=== PATIENT | male | born 1950 | race Caucasian/White ===

== ENCOUNTER 2021-10-07 10:14 | Inpatient (IN) | payer OTHER, MEDICARE ==
[~2021-10-07] VITALS: Ht 188 cm; Wt 101.6 kg
--- NOTE | 2021-10-07 10:22 | NUR ---
TO ER BED 11. BIBRA 860 [facility] C/O R KNEE PAIN S/P GLF LAST NIGHT DENIES HEAD INJURY. 100MCG FENTANYL IM GIVEN BY EMS TIMBER DEADENER.
--- NOTE | 2021-10-07 10:41 | NUR ---
iv established l hand 20g. converted to saline lock.
[2021-10-07] MEDS ORDERED: METO25TA20 PO (10:45)
[2021-10-07] MEDS ORDERED: METF-442 PO (10:45)
[2021-10-07] MEDS ORDERED: ALBU18HF2 IH (10:45)
[2021-10-07] MEDS ORDERED: INSU100V7 SQ (10:45)
[2021-10-07] MEDS ORDERED: ATOR40TA PO (10:45)
[2021-10-07] MEDS ORDERED: INSU100V9 SQ (10:45)
[2021-10-07] MEDS ORDERED: BUSP30TA2 PO (10:45)
--- NOTE | 2021-10-07 11:01 | NUR ---
x ray at bedside
[2021-10-07 11:05] LABS: BASOPHILS % (AUTO) 0.2 % (0.0-2.0); EOSINOPHILS % (AUTO) 0.5 % (0.0-6.0); HEMATOCRIT 33 % (39-51); LYMPHOCYTES # (AUTO) 0.5 K/uL (0.8-4.8); LYMPHOCYTES % (AUTO) 4.1 % (20.0-44.0); MEAN CORPUSCULAR HGB CONC 30 g/dl (31.0-36.0); MEAN CORPUSCULAR VOLUME 79 fL (80-96); MONOCYTES # (AUTO) 1.4 K/uL (0.1-1.30); MONOCYTES % (AUTO) 12.2 % (2.0-12.0); NEUTROPHILS # (AUTO) 9.5 K/uL (1.8-8.9); PLATELET COUNT (AUTO) 322 K/uL (150-450); RED BLOOD CELL COUNT(AUTO) 4.19 MIL/uL (4.5-6.0); WHITE BLOOD COUNT (AUTO) 11.4 K/uL (4.3-11.0)
[2021-10-07 11:40] LABS: ALANINE AMINOTRANSFERASE 135 U/L (12-78); ALBUMIN 2.9 g/dL (3.4-5.0); ALKALINE PHOSPHATASE 145 U/L (46-116); ASPARTATE AMINOTRANSFERASE 244 U/L (15-37); BILIRUBIN,TOTAL 0.5 mg/dL (0.2-1.0); CALCIUM, SERUM 8.3 mg/dL (8.5-10.1); CARBON DIOXIDE 27 mmol/L (21-32); CHLORIDE 95 mmol/L (98-107); CREATININE 1.3 mg/dL (0.6-1.3); GLUCOSE 145 mg/dL (74-106); POTASSIUM 4.1 mmol/L (3.5-5.1); SODIUM SERUM 128 mmol/L (136-145); TOTAL PROTEIN, SERUM 7.7 g/dL (6.4-8.2); UREA NITROGEN, BLOOD 15 mg/dL (7-18)
--- NOTE | 2021-10-07 12:09 | NUR ---
MOVE SHEET SUBMITTED AND CALLED FOR MS BED.
[2021-10-07] MEDS: MORPHINE SULFATE INJ 4 MG/ML DISP.SYRIN IM PRN ×2 (12:21→12:59)
--- NOTE | 2021-10-07 12:25 | NUR ---
HUSSEIN TRAFFIC OPERATOR WILL GIVE OBS AUTHORIZATION. TRANSFERED SHILPA AT INTAKE.
[2021-10-07] MEDS ORDERED: MORPHINE SULFATE INJ 4 MG/ML DISP.SYRIN ONE ×2 (12:42→13:12)
[2021-10-07] MEDS ORDERED: ONDANSETRON HCL/PF 4 MG/2 ML VIAL ONE (12:42)
[2021-10-07] MEDS ORDERED: ONDANSETRON HCL/PF 4 MG/2 ML VIAL IV PRN (13:00)
[2021-10-07] MEDS ORDERED: MORPHINE SULFATE INJ 4 MG/ML DISP.SYRIN IV PRN ×2 (13:00→13:30)
--- NOTE | 2021-10-07 13:05 | NUR ---
REPORT GIVEN TO ERIK FOR BREANNA.
--- NOTE | 2021-10-07 13:15 | NUR ---
VERBAL ORDER FROM DR MATOS TO GIVE AN ADDITIONAL 4MG OF MORPHINE IV
--- NOTE | 2021-10-07 13:26 | NUR ---
PT TRANSPORT TO [facility] AMNA STABLE CONDITION WITH ACLS PROTOCOLS IN PLACE.
[2021-10-07] MEDS ORDERED: FUROSEMIDE 40 MG/4 ML VIAL IV SCH (13:30)
[2021-10-07] MEDS ORDERED: ONDANSETRON HCL/PF 4 MG/2 ML VIAL IVP PRN (13:30)
[2021-10-07] MEDS ORDERED: ACETAMINOPHEN 325 MG TABLET PO PRN (13:30)
[2021-10-07] MEDS ORDERED: LABETALOL 20 MG/4 ML VIAL IV PRN (13:30)
[2021-10-07] MEDS ORDERED: MORPHINE SULFATE INJ 2 MG/ML DISP.SYRIN IV PRN (13:30)
[2021-10-07 16:00] VITALS: BP 142/82
[2021-10-07] MEDS: ENOXAPARIN SODIUM 40 MG/0.4 ML DISP.SYRIN SQ SCH (16:15)
[2021-10-07] MEDS ORDERED: DEXTROSE 50%-WATER 50 ML DISP.SYRIN IV PRN (18:00)
[2021-10-07] MEDS ORDERED: ALBUTEROL FS 2.5 MG/3 ML VIAL.NEB NEB PRN (18:00)
[2021-10-07] MEDS ORDERED: ATORVASTATIN 40 MG TABLET PO SCH (18:00)
[2021-10-07 18:36] LABS: IRON, SERUM 10 ug/dl (50-175); TOTAL IRON BINDING CAPACITY 316 ug/dl (250-450)
[2021-10-07 18:50] LABS: FERRITIN 57 ng/mL (8-388)
[2021-10-07] MEDS: BLOOD SUGAR DIAGNOSTIC 1 EACH STRIP VI SCH ×2 (18:52→22:08)
[2021-10-07] MEDS: MORPHINE SULFATE INJ 4 MG/ML DISP.SYRIN IV PRN (19:57)
[2021-10-07 20:00] VITALS: BP 140/74
--- NOTE | 2021-10-07 20:08 | NUR ---
RN NOTE PT NEW ADMIT FROM ER. S/P FALL. PT NOTED WITH R LEG IMMOBILIZER. PT IN PAIN 03/06, MEDICATED WITH POSITIVE EFFECT. PT HAS MANJEET MIDLINE G18 AND L HAND G 20. NO IVF. NEEDS ATTENDED. DUE MEDS GIVEN. WILL CONTINUE TO MONITOR.
--- NOTE | 2021-10-07 20:21 | NUR ---
RN NOTE PATIENT ALERT AND ORIENTED X4, ABLE TO MAKE NEEDS KNOWN. ON O2 2L VIA NASAL CANNULA, O2 SAT 98%. WITH RIGHT KNEE IMMOBILIZER. PATIENT COMPLAINED OF SEVERE 8/10 RIGHT HIP PAIN AND REQUESTING FOR PAIN MED, PRN MEDICATION GIVEN AND WITH POSITIVE EFFECT. IV ACCESS ON MELLISSA MIDLINE AND LEFT HAND #20 PATENT AND INTACT. BED LOCKED AND IN LOWEST POSITION. CALL LIGHT WITHIN REACH. ALL NEEDS ANTICIPATED.
[2021-10-07] MEDS: *INSULIN REGULAR(HUMULIN R)HUM 100 UNIT/ML VIAL SQ PRN (22:11)
[2021-10-08] MEDS: MORPHINE SULFATE INJ 4 MG/ML DISP.SYRIN IV PRN ×6 (00:05→21:37)
[2021-10-08 04:00] VITALS: BP 135/71
[2021-10-08 06:29] LABS: BASOPHILS % (AUTO) 0.1 % (0.0-2.0); HEMATOCRIT 29 % (39-51); HEMOGLOBIN 8.9 g/dL (13.5-17.5); LYMPHOCYTES # (AUTO) 0.6 K/uL (0.8-4.8); LYMPHOCYTES % (AUTO) 4.4 % (20.0-44.0); MEAN CORPUSCULAR HGB CONC 31 g/dl (31.0-36.0); MEAN CORPUSCULAR VOLUME 78 fL (80-96); MONOCYTES # (AUTO) 1.7 K/uL (0.1-1.30); NEUTROPHILS # (AUTO) 11.7 K/uL (1.8-8.9); NEUTROPHILS % (AUTO) 83.5 % (43.0-81.0); PLATELET COUNT (AUTO) 270 K/uL (150-450); RED BLOOD CELL COUNT(AUTO) 3.73 MIL/uL (4.5-6.0)
--- NOTE | 2021-10-08 06:40 | NUR ---
RN NOTE PATIENT RESTING IN BED. ON O2 2L VIA NASAL CANNULA, O2 SAT WNL. WITH RIGHT KNEE IMMOBILIZER. PRN PAIN MEDICATION GIVEN THROUGH OUT THE SHIFT. ICE PACKS GIVEN WELL. IV ACCESS ON MELLISSA MIDLINE AND LEFT HAND #20 PATENT AND INTACT. BED LOCKED AND IN LOWEST POSITION. CALL LIGHT WITHIN REACH. WILL ENDORSE TO AM SHIFT.
--- NOTE | 2021-10-08 07:30 | NUR ---
RN OPENING NOTES RECEIVED PATIENT AWAKE, ALERT AND ORIENTED X4, ABLE TO MAKE NEEDS KNOWN. ON O2 2L VIA NASAL CANNULA, O2 SAT 98%. WITH RIGHT KNEE IMMOBILIZER. IV ACCESS ON MELLISSA MIDLINE AND LEFT HAND #20 PATENT AND INTACT, FLUSHED WELL. ALL SAFETY MEASURES IN PLACE. BED LOCKED AND IN LOWEST POSITION. CALL LIGHT WITHIN REACH. WILL CONTINUE TO MONITOR PATIENT ACCORDINGLY.
[2021-10-08 07:51] LABS: ALBUMIN 2.3 g/dL (3.4-5.0); BILIRUBIN,TOTAL 0.9 mg/dL (0.2-1.0); CALCIUM, SERUM 7.7 mg/dL (8.5-10.1); CREATININE 1.2 mg/dL (0.6-1.3); POTASSIUM 3.4 mmol/L (3.5-5.1); TOTAL PROTEIN, SERUM 6.7 g/dL (6.4-8.2)
[2021-10-08] MEDS: BLOOD SUGAR DIAGNOSTIC 1 EACH STRIP VI SCH ×4 (08:15→21:35)
[2021-10-08] MEDS: METOPROLOL TARTRATE 25 MG TABLET PO SCH ×2 (08:45→17:04)
[2021-10-08] MEDS: busPIRone 5 MG TABLET PO SCH ×2 (08:45→17:05)
[2021-10-08] MEDS ORDERED: FUROSEMIDE 20 MG/2 ML VIAL IV SCH (09:00)
[2021-10-08] MEDS ORDERED: IOHEXOL-350 100 ML VIAL IV ONE (09:08)
[2021-10-08] MEDS ORDERED: IV NS 0.9% 250 ML IV ONE (09:09)
--- NOTE | 2021-10-08 09:15 | NUR ---
RN NOTE PATIENT LEFT UNIT FOR CT OF CHEST IN STABLE CONDITION. NO RESPIRATORY DISTRESS NOTED AT THE TIME.
--- NOTE | 2021-10-08 09:32 | NUR ---
WOUND CARE CONSULT: PT OFF UNIT AT THIS TIME. WILL SEE PT PT CONDITION PERMITS. DR CONNOR NOTIFIED OF DPM CONSULT REQUEST AFTER REVIEWING ADMISSION PHOTO WITH LEFT HEEL ULCER. IN AGREEMENT WITH PLAN OF CARE. Addendum: 10/08/21 at 0941 by KATIE MEADE WNDNU CORRECTION: ADMISSION PHOTO INDICATES RT HEEL ULCER.
--- NOTE | 2021-10-08 09:39 | NUR ---
RN NOTE PATIENT BACK IN THE UNIT IN STABLE CONDITION. ALL NEEDS ANTICIPATED. ALL SAFETY MEASURES IN PLACE. CALL LIGHT WITHIN REACH. WILL CONTINUE TO MONITOR PATIENT ACCORDINGLY.
[2021-10-08] MEDS: VANCOMYCIN 1 GM in IV D5W 250 ML IV SCH ×2 (09:47→22:52)
[2021-10-08] MEDS ORDERED: Z GUARD REMEDY 4 OZ OINT TP PRN (10:00)
[2021-10-08] MEDS ORDERED: POTASSIUM CHLORIDE 20 MEQ TAB.PRT.SR PO SCH (10:30)
[2021-10-08] MEDS: POTASSIUM CHLORIDE 20 MEQ TAB.PRT.SR PO SCH ×3 (11:13→12:48)
[2021-10-08] MEDS: FUROSEMIDE 40 MG/4 ML VIAL IV SCH ×3 (11:13→17:50)
[2021-10-08 12:00] VITALS: BP 149/73
[2021-10-08] MEDS ORDERED: oxyCODONE/APAP (5/325 MG) 1 UDTAB TABLET PO PRN (12:00)
[2021-10-08] MEDS: INSULIN REGULAR, HUMAN 100 UNIT/ML 3 ML VIAL SQ PRN (12:07)
[2021-10-08] MEDS: ENOXAPARIN SODIUM 40 MG/0.4 ML DISP.SYRIN SQ SCH (12:48)
[2021-10-08] MEDS ORDERED: CEFEPIME 2 GM in IV D5W 100 ML IV SCH (13:00)
--- NOTE | 2021-10-08 14:25 | NUR ---
RN NOTES PATIENT DECLINED TO BE MOVE AT THE TIME FOR THE MRI. SHERRI ASSEMBLER [employer] WAS AT BEDSIDE, PATIENT STATES "I DON'T WANT TO MOVE, I'M IN TOO MUCH PAIN."
--- NOTE | 2021-10-08 15:30 | NUR ---
RN NOTE PATEIENT REFUSED TO HAVE DUPLEX VENOUS STUDY OF LOWER EXTREMITY TO RULE OUT DVT PATIENT STATES "I DON'T WANT TO GET IT DONE, LET THE DOCTOR KNOW."
--- NOTE | 2021-10-08 15:59 | NUR ---
SW received consult regarding homelessness. SW will follow-up at a later time.
--- NOTE | 2021-10-08 18:48 | NUR ---
PATIENT REFUSED TO DO DUPLEX VENOUS LOWER EXTREMITIES AT THIS TIME. WILL TRY IN THE MORNING. NOTIFIED RN.
--- NOTE | 2021-10-08 19:03 | NUR ---
RN CLOSING NOTES PATIENT REMAINS IN STABLE CONDITION THROUGHOUT SHIFT. PATIENT AWAKE, ALERT AND ORIENTED X4, ABLE TO MAKE NEEDS KNOWN. ON O2 2L VIA NASAL CANNULA, TOLERATING WELL. WITH RIGHT KNEE IMMOBILIZER. IV ACCESS ON MELLISSA MIDLINE AND LEFT HAND #20 PATENT AND INTACT, FLUSHED WELL. ALL DUE MEDS GIVEN ORDERED. KEPT PATIENT CLEAN DRY AND COMFORTABLE. ALL NEEDS ATTENDED. ALL SAFETY MEASURES IN PLACE. BED LOCKED AND IN LOWEST POSITION. CALL LIGHT WITHIN REACH. WILL ENDORSE TO ONCOMING NURSE FOR CONTINUITY OF CARE.
--- NOTE | 2021-10-08 19:10 | NUR ---
RN NOTE PT RECEIVED IN BED. PT SHOWING NO S/SX OF RESP DISTRESS/SOB. PT IS A/OX4, ABLE TO VERBALIZE NEEDS. RIGHT KNEE IMMOBILIZER NOTED ON PATIENT WELL RIGHT HEEL ULCER. IV ACCESS NOTED ON RIGHT UA ML #18, AND LEFT HAND #20, LINES FLUSHED, PATENT, AND INTACT WITH NO SIGNS OF INFILTRATION. ALL SAFETY MEASURES IMPLEMENTED. HOB ELEVATED. CALL LIGHT WITHIN REACH. BED ALARM ON. BED LOCKED AND IN LOWEST POSITION. WILL CONTINUE TO MONITOR AND ASSESS FOR ANY CHANGES DURING SHIFT.
[2021-10-08 20:00] VITALS: BP 125/61
[2021-10-08] MEDS: MEROPENEM 500 MG in IV NS 0.9% 50 ML IV SCH (21:25)
[2021-10-08] MEDS: *INSULIN REGULAR(HUMULIN R)HUM 100 UNIT/ML VIAL SQ PRN (21:36)
[2021-10-09 04:00] VITALS: BP 133/67
[2021-10-09] MEDS: MORPHINE SULFATE INJ 4 MG/ML DISP.SYRIN IV PRN ×2 (04:14→12:02)
[2021-10-09] MEDS: MEROPENEM 500 MG in IV NS 0.9% 50 ML IV SCH ×2 (05:30→13:00)
--- NOTE | 2021-10-09 06:49 | NUR ---
RN NOTE NO CHANGES IN PT CONDITION DURING SHIFT. PT SHOWING NO S/SX OF RESP DISTRESS/SOB. PT IS A/OX4, ABLE TO VERBALIZE NEEDS. RIGHT KNEE IMMOBILIZER NOTED ON PATIENT WELL RIGHT HEEL ULCER. IV ACCESS NOTED ON RIGHT UA ML #18, AND LEFT HAND #20, LINES FLUSHED, PATENT, AND INTACT WITH NO SIGNS OF INFILTRATION. ALL SAFETY MEASURES IMPLEMENTED. ALL DUE MEDS GIVEN ORDERED. PT KEPT CLEAN AND COMFORTABLE. HOB ELEVATED. CALL LIGHT WITHIN REACH. BED ALARM ON. BED LOCKED AND IN LOWEST POSITION. WILL ENDORSE TO MORNING SHIFT RN FOR BREANNA.
[2021-10-09 07:04] LABS: BASOPHILS % (AUTO) 0.2 % (0.0-2.0); HEMATOCRIT 29 % (39-51); HEMOGLOBIN 8.9 g/dL (13.5-17.5); LYMPHOCYTES # (AUTO) 0.5 K/uL (0.8-4.8); LYMPHOCYTES % (AUTO) 2.7 % (20.0-44.0); MEAN CORPUSCULAR HGB CONC 31 g/dl (31.0-36.0); MEAN CORPUSCULAR VOLUME 77 fL (80-96); MONOCYTES # (AUTO) 1.5 K/uL (0.1-1.30); MONOCYTES % (AUTO) 7.9 % (2.0-12.0); NEUTROPHILS # (AUTO) 16.8 K/uL (1.8-8.9); NEUTROPHILS % (AUTO) 89.2 % (43.0-81.0); PLATELET COUNT (AUTO) 282 K/uL (150-450); RED BLOOD CELL COUNT(AUTO) 3.71 MIL/uL (4.5-6.0); WHITE BLOOD COUNT (AUTO) 18.9 K/uL (4.3-11.0)
--- NOTE | 2021-10-09 07:30 | NUR ---
RN OPENING NOTES RECEIVED PATIENT IN BED. AWAKE ALERT VERBALLY RESPONSIVE. NOT IN DISTRESS. NO COMPLAINTS OF PAIN NOTED. O2 @ 2LPM VIA NC SATING 100%. IV SITE MELLISSA #18 AND LEFT HAND #20 PATENT AND INTACT. RIGHT KNEE IMMOBILIZER IN PLACE. BED TO LOWEST POSITION AND LOCKED. CALL LIGHT WITHIN REACH.
[2021-10-09] MEDS: INSULIN REGULAR, HUMAN 100 UNIT/ML 3 ML VIAL SQ PRN ×2 (08:01→12:00)
[2021-10-09] MEDS: BLOOD SUGAR DIAGNOSTIC 1 EACH STRIP VI SCH ×2 (08:10→11:59)
[2021-10-09] MEDS: METOPROLOL TARTRATE 25 MG TABLET PO SCH (08:11)
[2021-10-09] MEDS: busPIRone 5 MG TABLET PO SCH ×2 (08:11→08:17)
[2021-10-09 08:12] LABS: ALANINE AMINOTRANSFERASE 95 U/L (12-78); ALKALINE PHOSPHATASE 138 U/L (46-116); ASPARTATE AMINOTRANSFERASE 77 U/L (15-37); BILIRUBIN,TOTAL 0.8 mg/dL (0.2-1.0); CALCIUM, SERUM 7.7 mg/dL (8.5-10.1); CARBON DIOXIDE 29 mmol/L (21-32); CHLORIDE 96 mmol/L (98-107); CREATININE 1.5 mg/dL (0.6-1.3); GLUCOSE 140 mg/dL (74-106); MAGNESIUM 1.9 mg/dL (1.8-2.4); PHOSPHORUS 3.5 mg/dL (2.5-4.9); POTASSIUM 3.7 mmol/L (3.5-5.1); SODIUM SERUM 132 mmol/L (136-145); TOTAL PROTEIN, SERUM 6.5 g/dL (6.4-8.2); UREA NITROGEN, BLOOD 21 mg/dL (7-18)
[2021-10-09] MEDS: VANCOMYCIN 1 GM in IV D5W 250 ML IV SCH ×2 (09:13→09:16)
[2021-10-09] MEDS ORDERED: FUROSEMIDE 40 MG TABLET PO SCH (09:30)
[2021-10-09] MEDS ORDERED: POTASSIUM CHLORIDE 20 MEQ TAB.PRT.SR PO SCH (09:30)
--- NOTE | 2021-10-09 09:36 | NUR ---
WOUND CARE: PT NOTED TO HAVE RT HEEL ULCER, PRESENT ON ADMISSION. PREVIOUS DPM CONSULT ON 10/08 DID NOT GO THROUGH. NOTIFIED DR CONNOR OF DPM CONSULT THIS AM. PT REFUSED FULL SKIN ASSESSMENT. KNEE IMMOBILIZER NOTED TO RT LEG. MD IN AGREEMENT WITH PLAN OF CARE.
--- NOTE | 2021-10-09 10:31 | NUR ---
SW attempted to meet with pt. bedside. pt. is being seen by PT. SW will follow up at a later time.
--- NOTE | 2021-10-09 11:00 | NUR ---
RN NOTES PATIENT HAS BEEN REFUSING MEDICATIONS BOTH PO AND IV. CHARGE NURSE IBIS MADE AWARE. DR. ESPINOZA MADE AWARE OF PATIENT'S REFUSAL FOR MD ORDERED LASIX AND POTASSIUM TABLET FOR PATIENT. Addendum: 10/09/21 at 1102 by JOVAN ZHOU RN PATIENT S/P SERIAL EXCISIONAL WOUND DEBRIDEMENT OF RIGHT LOWER EXTREMITY BY DR. CONNOR. PATIENT SIGNED CONSENT AND FILED ON CHART.
[2021-10-09 12:00] VITALS: BP 103/64
[2021-10-09] MEDS: ENOXAPARIN SODIUM 40 MG/0.4 ML DISP.SYRIN SQ SCH (13:09)
--- NOTE | 2021-10-09 13:50 | NUR ---
RN NOTES [id number] PATIENT SIGNED AMA FORM FOR PATIENT IS INSISTING TO GO HOME WITHOUT MEDICAL ADVISE. BELONGINGS REVIEWED WITH PATIENT. PATIENT STATED DOESN'T WANT TO TAKE THE LIFEVEST WITH HIM. GAMAL [facility] MADE AWARE. [id number] PATIENT LEFT THE HOSPITAL VIA WHEELCHAIR IN STABLE CONDITION. IV SITES PULLED OUT ASEPTICALLY.
[2021-10-10] MEDS ORDERED: THERAHONEY GEL 1.5 OZ TUBE TP SCH (09:00)
--- NOTE | 2021-10-10 12:25 | NUR ---
SS Note SS received consult for homeless. Pt. departed from hospital and SW was not able to interview pt. Per EMR, pt. signed AMA.
== END 2021-10-09 14:30 | disposition home or self-care (01) | DRG 720 ==
LOC: ER 10:17 → MEDSG1 12:44
PROVIDERS: ADMIT Internal Medicine; ATTEND Nurse Practitioner Acute Care
PROC: 05HB33Z Insertion of Infusion Device into Right Basilic Vein, Percutaneous Approach (ICD-10-PCS; principal; 2021-10-07)
PROC: 0JBQ0ZZ Excision of Right Foot Subcutaneous Tissue and Fascia, Open Approach (ICD-10-PCS; 2021-10-09)
DX: A41.9 Sepsis, unspecified organism (principal); I50.43 Acute on chronic combined systolic (congestive) and diastolic (congestive) heart failure; E11.40 Type 2 diabetes mellitus with diabetic neuropathy, unspecified; E11.621 Type 2 diabetes mellitus with foot ulcer; E87.1 Hypo-osmolality and hyponatremia; L97.419 Non-pressure chronic ulcer of right heel and midfoot with unspecified severity; D50.9 Iron deficiency anemia, unspecified; M86.8X7 Other osteomyelitis, ankle and foot; I11.0 Hypertensive heart disease with heart failure; S82.001A Unspecified fracture of right patella, initial encounter for closed fracture; Y93.9 Activity, unspecified; Y92.009 Unspecified place in unspecified non-institutional (private) residence as the place of occurrence of the external cause; G89.29 Other chronic pain; I25.2 Old myocardial infarction; M17.11 Unilateral primary osteoarthritis, right knee; M19.071 Primary osteoarthritis, right ankle and foot; W18.30XA Fall on same level, unspecified, initial encounter; Z59.01 Sheltered homelessness; Z91.81 History of falling; Z79.84 Long term (current) use of oral hypoglycemic drugs; F17.210 Nicotine dependence, cigarettes, uncomplicated; R74.01 Elevation of levels of liver transaminase levels
CPT/HCPCS: 36410; 36415; 71045-TC; 71250-TC; 73564-TC; 73590-TC; 76700-TC; 80053-TC; 82728-TC; 82962-TC; 83540-TC; 83605-TC; 83735-TC; 83880; 84100-TC; 84484-TC; 85025-TC; 85652-TC; 85730-TC; 86140-TC; 87040-TC; 87081-TC; 93307-TC; 97116-TC; 97530-TC; A4217; A6253; A6403; C9803; G0378; G0480; J0692; J1650; J1815; J1940; J2185; J2270; J2405; J3370; J7050; J7060; Q9967